=== PATIENT | female | born 1955 | race Caucasian/White ===

== ENCOUNTER → 2020-01-09 | Outpatient (CLI) | payer MEDICARE, OTHER ==
[2020-01-09 09:49] LABS: HCT 36.8 % (34.0-46.0); HGB 11.7 gm/dL (11.4-16.0); MCH 29.6 pg (25.0-35.0); MCHC 31.8 g/dL (31.0-37.0); MCV 93.3 fL (80.0-100.0); Mean Platelet Volume 7.5; Platelet Count 216 k/uL (150-450); RBC 3.95 m/uL (3.80-5.40); RDW 12.7 % (11.5-15.5); WBC 5.5 k/uL (3.8-10.6)
[2020-01-09 10:07] LABS: Appearance,Urine Cloudy (Clear); Bacteria,Urine Many /hpf; Bilirubin,Urine Negative (Negative); Blood,Urine Negative (Negative); Color,Urine Yellow; Glucose,Urine (UA) Negative (Negative); Ketones,Urine Negative (Negative); Leukocyte Esterase,Urine Large (Negative); Mucus,Urine Few /hpf; Nitrite,Urine Negative (Negative); PH, Urine 5.5 (5.0-8.0); Protein,Urine Trace (Negative); RBC,Urine 1 /hpf (0-5); Squamous Epithelial Cell,Urine <1 /hpf (0-4); Urobilinogen,Urine <2.0 mg/dL (<2.0); WBC,Urine 15 /hpf (0-5)
[2020-01-09 16:55] LABS: African American GFR (CKD) 68.5 (60.0-200.0); Albumin 3.9 g/dL (3.80-4.90); Albumin/Globulin Ratio 1.95 (1.60-3.17); Anion Gap 5.4 mmol/L (4.00-12.00); Calcium 9.1 mg/dL (8.7-10.3); Carbon Dioxide 26.6 mmol/L (21.6-31.8); Non-African American GFR(CKD) 59.1 (60.0-200.0); Phosphorus 3.6 mg/dL (2.4-5.1); Potassium 4.6 mmol/L (3.5-5.5); Total Bilirubin 0.6 mg/dL (0.3-1.2); Total Protein 5.9 g/dL (6.2-8.2)
== END | disposition home or self-care (01) ==
LOC: LABWHC1 08:18
PROVIDERS: ATTEND Orthopaedic Surgery
DX: M25.562 Pain in left knee (principal); M17.12 Unilateral primary osteoarthritis, left knee; M21.162 Varus deformity, not elsewhere classified, left knee; M24.562 Contracture, left knee; M85.88 Other specified disorders of bone density and structure, other site; Z88.1 Allergy status to other antibiotic agents
CPT/HCPCS: 36415; 80053; 81001; 82306; 82310; 82652; 83970; 84100; 85027

== ENCOUNTER → 2020-09-06 | Outpatient (CLI) | payer MEDICARE ==
[2020-09-06 14:59] LABS: Total Eosinophil Count 188 #EOS/uL (150-300)
[2020-09-06 19:19] LABS: African American GFR (CKD) 89.7 (60.0-200.0); Albumin 4.4 g/dL (3.80-4.90); Albumin/Globulin Ratio 2.44 (1.60-3.17); Anion Gap 10.7 mmol/L (4.00-12.00); BUN/Creat Ratio 26.25 Ratio (12.00-20.00); Calcium 9.4 mg/dL (8.7-10.3); Carbon Dioxide 27.3 mmol/L (21.6-31.8); Globulin 1.8 g/dL (1.6-3.3); Non-African American GFR(CKD) 77.4 (60.0-200.0); Potassium 4.8 mmol/L (3.5-5.5); Total Bilirubin 0.5 mg/dL (0.2-1.2); Total Protein 6.2 g/dL (6.2-8.2)
[2020-09-06 22:37] LABS: Dermato. farinae IgE <0.10 kU/L; Dog Dander IgE 1.95 kU/L
[2020-09-06 22:38] LABS: Alternaria alternata IgE 1.68 kU/L; Aspergillus fumagatus IgE <0.10 kU/L; Cladosporian herbarum IgE <0.10 kU/L; Cockroach IgE <0.10 kU/L
[2020-09-06 22:39] LABS: Birch IgE 3.07 kU/L; Maple (Box Elder) IgE 0.64 kU/L; Oak IgE 1.08 kU/L
[2020-09-06 22:40] LABS: Elm IgE <0.10 kU/L; Ragweed,Common IgE 0.28 kU/L
[2020-09-06 22:41] LABS: Red Top (Bentgrass) IgE <0.10 kU/L
[2020-09-07 03:09] LABS: Basophils # (A) 0.05 X 10*3/uL (0.00-0.10); Basophils % (A) 0.5 %; HCT 40.9 % (37.2-46.3); HGB 12.6 g/dL (12.0-15.0); Lymphocytes # (A) 0.47 X 10*3/uL (0.90-5.00); Lymphocytes % (A) 4.8 %; MCHC 30.8 g/dL (32.0-37.0); MCV 97.4 fL (80.0-97.0); Mean Platelet Volume 10.4 fL (9.5-12.2); Neutrophils # (A) 8.83 X 10*3/uL (1.80-7.70); Neutrophils % (A) 90.4 %; Platelet Count 231 X 10*3/uL (140-440); RDW 13.8 % (11.5-14.5); WBC 9.78 X 10*3/uL (4.50-10.00)
== END | disposition home or self-care (01) ==
LOC: LABWHC1 13:03
PROVIDERS: ATTEND Internal Medicine Critical Care Medicine
DX: J45.50 Severe persistent asthma, uncomplicated (principal)
CPT/HCPCS: 36415; 80053; 82785; 85008; 85025; 86003

== ENCOUNTER → 2021-10-14 | Outpatient (CLI) | payer MEDICARE ==
--- NOTE | 2021-10-14 14:18 | CT ---
EXAMINATION TYPE: CT abdomen pelvis wo con DATE OF EXAM: 10/14/2021 COMPARISON: None HISTORY: Rt flank pain CT DLP: 416.8 mGycm Automated exposure control for dose reduction was used. TECHNIQUE: Helical acquisition of images was performed from the lung bases through the pelvis. FINDINGS: Visualized lung bases are clear. There are surgical absence of gallbladder. There are no renal, ureteral or urinary bladder calcificat ions. There is no hydronephrosis There is no organomegaly involving the solid visceral organs of the upper abdomen. The caliber of the abdominal aorta is normal and no evidence of aneurysm. The bowel loops are normal in caliber and there is no evidence of dilatation or obstruction. No infla mmatory changes are identified in the mesentery. There is no free intraperitoneal air or fluid. There is no pelvic mass, free fluid or adenopathy. There are surgical absence of the uterus. No focal osseous abnormalities are seen. There are degenerative changes within the lower lumbar spine . IMPRESSION: 1. No renal or ureteral calcifications or hydronephrosis. 2. No acute changes within the abdomen or pelvis
== END | disposition home or self-care (01) ==
LOC: RADCTMAIN 13:28
PROVIDERS: ATTEND Internal Medicine
DX: R10.9 Unspecified abdominal pain (principal)
CPT/HCPCS: 74176

== ENCOUNTER → 2021-10-17 | Outpatient (CLI) | payer MEDICARE ==
--- NOTE | 2021-10-18 10:03 | MM ---
Reason for exam: screening (asymptomatic). Baseline mammogram. History: Patient is postmenopausal. Family history of breast cancer in sister at age 67. Physical Findings: A clinical breast exam by your physician is recommended on an annual basis and results should be correlated with mammographic findings. MG 3D Screening Mammo W/Cad Bilateral CC and MLO view(s) were taken. The breast tissue is heterogeneously dense. This may lower the sensitivity of mammography. There are benign appearing round, vascular calcifications bilaterally. There is no discrete abnormality. ASSESSMENT: Benign, BI-RAD 2 RECOMMENDATION: Routine screening mammogram of both breasts in 1 year. Manage on a clinical basis with regard to right breast pain off and on.
== END | disposition home or self-care (01) ==
LOC: RADMAMWWP 13:04
PROVIDERS: ATTEND Internal Medicine
DX: Z12.31 Encounter for screening mammogram for malignant neoplasm of breast (principal); Z78.0 Asymptomatic menopausal state; Z80.3 Family history of malignant neoplasm of breast
CPT/HCPCS: 77063; 77067

== ENCOUNTER 2023-11-25 12:01 | Inpatient (IN) | payer MEDICARE ==
--- NOTE | 2023-11-25 12:29 | ED ---
General Adult HPI - General Chief complaint: Shortness of Breath Stated complaint: ASTHMA Time Seen by Provider: 11/25/23 12:15 Source: patient, RN notes reviewed, old records reviewed Mode of arrival: wheelchair Limitations: no limitations - History of Present Illness Initial comments: This is a 68-year-old female who presents to the emergency department complaining of difficulty breathing. Patient states she has a history of asthma and this time of the year when there is a lot of pollen her asthma starts to act up. Patient states she has been taking breathing treatments but it has not helped. Patient went to an urgent care in the urgent care center to see us. Patient denies any fevers or chills. Patient denies any chest pain or palpitations. Patient states she has a cough but it is typical of her asthma. Patient denies any abdominal pain patient has nausea vomiting diarrhea. Patient denies any swelling to the legs or any calf tenderness. - Related Data Home Medications Medication Instructions Recorded Confirmed Ascorbic Acid [Vitamin C] 1,000 mg PO BID 05/15/16 05/15/16 Beclomethasone Dipropionate [Qvar 1 puff INHALATION RT-BID 05/15/16 05/15/16 80 mcg] Budesonide/Formoterol Fumarate 2 puff INHALATION RT-BID 05/15/16 05/15/16 [Symbicort 160-4.5 Mcg Inhaler] Calcium Carbonate/Vitamin D3 1 tab PO BID 05/15/16 05/15/16 [Calcium 500-Vit D3 600 Tablet] Cetirizine HCl 10 mg PO DAILY 05/15/16 05/15/16 Citalopram Hydrobromide [CeleXA] 40 mg PO DAILY 05/15/16 05/15/16 Montelukast [Singulair] 10 mg PO DAILY 05/15/16 05/15/16 Omeprazole 20 mg PO DAILY 05/15/16 05/15/16 Theophylline 12 Hour [Saw-Dur] 200 mg PO Q12HR 05/15/16 05/15/16 Previous Rx's Medication Instructions Recorded Dolutegravir Sodium [Tivicay] 50 mg PO DAILY 28 Days tablet 05/15/16 Emtricitabine/Tenofovir (Tdf) 1 each PO DAILY #28 tab 05/15/16 [Truvada 200 mg-300 mg Tablet] Allergies Allergy/AdvReac Type Severity Reaction Status Date / Time cefdinir [From Omnicef] Allergy Unknown Verified 11/25/23 12:06 latex Allergy Unknown Verified 11/25/23 12:06 levofloxacin [From Levaquin] Allergy Rash/Hives Verified 11/25/23 12:06 Penicillins Allergy Unknown Verified 11/25/23 12:06 sulfamethoxazole Allergy Rash/Hives Verified 11/25/23 12:06 [From Bactrim] trimethoprim [From Bactrim] Allergy Rash/Hives Verified 11/25/23 12:06 Review of Systems ROS Statement: Those systems with pertinent positive or pertinent negative responses have been documented in the HPI. ROS Other: All systems not noted in ROS Statement are negative. Past Medical History Past Medical History: Asthma Additional Past Medical History / Comment(s): hypoglycemia History of Any Multi-Drug Resistant Organisms: None Reported Past Surgical History: Hysterectomy Past Psychological History: No Psychological Hx Reported Smoking Status: Never smoker Past Alcohol Use History: None Reported Past Drug Use History: None Reported General Exam - General Exam Comments Initial Comments: GENERAL: Patient is well-developed and well-nourished. Patient is nontoxic and well- hydrated and is in mild distress. ENT: Neck is soft and supple. No significant lymphadenopathy is noted. Oropharynx is clear. Moist mucous membranes. Neck has full range of motion without eliciting any pain. EYES: The sclera were anicteric and conjunctiva were pink and moist. Extraocular movements were intact and pupils were equal round and reactive to light. Eyelids were unremarkable. PULMONARY: Expiratory wheezing diffusely CARDIOVASCULAR: There is a regular rate and rhythm without any murmurs gallops or rubs. ABDOMEN: Soft and nontender with normal bowel sounds. SKIN: Skin is clear with no lesions or rashes and otherwise unremarkable. NEUROLOGIC: Patient is alert and oriented x3. Cranial nerves II through XII are grossly intact. Motor and sensory are also intact. Normal speech, volume and content. Symmetrical smile. MUSCULOSKELETAL: Normal extremities with adequate strength and full range of motion. No lower extremity swelling or edema. No calf tenderness. LYMPHATICS: No significant lymphadenopathy is noted PSYCHIATRIC: Normal psychiatric evaluation. Limitations: no limitations Course Vital Signs 11/25/23 11/25/23 11/25/23 12:03 12:37 12:48 Temperature 97.8 F Pulse Rate 91 80 Respiratory 20 26 H Rate Blood Pressure 154/102 O2 Sat by Pulse 94 L Oximetry 06/09/24 06/09/24 06/09/24 12:56 13:03 13:58 Temperature Pulse Rate 82 88 82 Respiratory Rate Blood Pressure O2 Sat by Pulse Oximetry 11/25/23 14:09 Temperature Pulse Rate 80 Respiratory Rate Blood Pressure O2 Sat by Pulse Oximetry Medical Decision Making - Medical Decision Making EKG is interpreted by myself read EKG shows sinus rhythm at 90 bpm parable 140 QRS of 71 QT interval 374 QTc is 421. Patient's EKG shows no ST segment ovation or depression Was pt. sent in by a medical professional or institution (, PA, [employer], urgent care, hospital, or halfway...) When possible be specific @ -No Did you speak to anyone other than the patient for history (EMS, parent, family, police, friend...)? What history was obtained from this source @ -No Did you review nursing and triage notes (agree or disagree)? Why? @ -I reviewed and agree with nursing and triage notes Were old charts reviewed (outside hosp., previous admission, EMS record, old EKG, old radiological studies, urgent care reports/EKG's, halfway records)? Report findings @ -I compared today's chest x-ray with prior chest x-rays from a previous admission I see no acute explanation for the patient's symptoms today. Differential Diagnosis (chest pain, altered mental status, abdominal pain women, abdominal pain men, vaginal bleeding, weakness, fever, dyspnea, syncope, headache, dizziness, GI bleed, back pain, seizure, CVA, palpatations, mental health, musculoskeletal)? @ -Differential Dyspnea: Coronary syndrome, arrhythmia, tamponade, asthma, COPD, pulmonary embolism, pneumonia, pneumothorax, pulmonary effusion, anaphylaxis, diabetic ketoacidosis, flailed chest, pulmonary contusion, diaphragmatic rupture, anemia, neuromuscular, this is not meant to be an all-inclusive list. EKG interpreted by me (3pts min.). @ -As above X-rays interpreted by me (1pt min.). @ -Chest x-ray shows no acute normality CT interpreted by me (1pt min.). @ -None done U/S interpreted by me (1pt. min.). @ -None done What testing was considered but not performed or refused? (CT, X-rays, U/S, labs)? Why? @ -None What meds were considered but not given or refused? Why? @ -None Did you discuss the management of the patient with other professionals (professionals i.e. , PA, [employer], lab, RT, psych nurse, social services director, fur clipper, teacher, radio electronics officer, rehabilitation case coordinator)? Give summary @ -Spoke with sound physicians they agreed admit the patient admit the patient I wrote admitting orders Was smoking cessation discussed for >3mins.? @ -No Was critical care preformed (if so, how long)? @ -No Were there social determinants of health that impacted care today? How? (Homelessness, low income, unemployed, alcoholism, drug addiction, transportation, low edu. Level, literacy, decrease access to med. care, care home, rehab)? @ -No Was there de-escalation of care discussed even if they declined (Discuss DNR or withdrawal of care, Hospice)? DNR status @ -No What co-morbidities impacted this encounter? (DM, HTN, Smoking, COPD, CAD, Cancer, CVA, ARF, Chemo, Hep., AIDS, mental health diagnosis, sleep apnea, morbid obesity)? @ -None Was patient admitted / discharged? Hospital course, mention meds given and route, prescriptions, significant lab abnormalities, going to OR and other pertinent info. @ -Hospital course Undiagnosed new problem with uncertain prognosis? @ -No Drug Therapy requiring intensive monitoring for toxicity (Heparin, Nitro, Insulin, Cardizem)? @ -No Were any procedures done? @ -No Diagnosis/symptom? @ -Acute exacerbation of asthma Acute, or Chronic, or Acute on Chronic? @ -Acute Uncomplicated (without systemic symptoms) or Complicated (systemic symptoms)? @ -Complicated Side effects of treatment? @ -No Exacerbation, Progression, or Severe Exacerbation? @ -Severe exacerbation Poses a threat to life or bodily function? How? (Chest pain, [place], [place], pneumonia, PE, COPD, DKA, ARF, appy, cholecystitis, CVA, Diverticulitis, Homicidal, Suicidal, threat to staff... and all critical care pts) @ -Yes this can lead to hypoxia and endorgan dysfunction - Lab Data Result diagrams: 11/25/23 12:32 11/25/23 12:32 Lab Results 11/25/23 11/25/23 Range/Units 12:32 12:32 WBC 6.9 (3.8-10.6) k/uL RBC 4.70 (3.80-5.40) m/uL Hgb 14.2 (11.4-16.0) gm/dL Hct 43.5 (34.0-46.0) % MCV 92.5 (80.0-100.0) fL MCH 30.3 (25.0-35.0) pg MCHC 32.7 (31.0-37.0) g/dL RDW 13.3 (11.5-15.5) % Plt Count 195 (150-450) k/uL MPV 8.2 Neutrophils % 75 % Lymphocytes % 9 % Monocytes % 5 % Eosinophils % 8 % Basophils % 1 % Neutrophils # 5.2 (1.3-7.7) k/uL Lymphocytes # 0.6 L (1.0-4.8) k/uL Monocytes # 0.4 (0-1.0) k/uL Eosinophils # 0.6 (0-0.7) k/uL Basophils # 0.1 (0-0.2) k/uL Sodium 136 L (137-145) mmol/L Potassium 4.6 (3.5-5.1) mmol/L Chloride 109 H (98-107) mmol/L Carbon Dioxide 22 (22-30) mmol/L Anion Gap 5 mmol/L BUN 20 H (7-17) mg/dL Creatinine 0.76 (0.52-1.04) mg/dL Est GFR (CKD-EPI)AfAm >90 (>60 ml/min/1.73 sqM) Est GFR (CKD-EPI)NonAf 81 (>60 ml/min/1.73 sqM) Glucose 77 (74-99) mg/dL Calcium 9.0 (8.4-10.2) mg/dL Total Bilirubin 1.2 (0.2-1.3) mg/dL AST 24 (14-36) U/L ALT 14 (4-34) U/L Alkaline Phosphatase 88 (38-126) U/L Total Protein 6.6 (6.3-8.2) g/dL Albumin 4.3 (3.5-5.0) g/dL Disposition Clinical Impression: Exacerbation of asthma Disposition: ADMITTED IP TO THIS HOSP Referrals: None,Stated [Primary Care Provider] - 1-2 days Time of Disposition: 14:18
[2023-11-25] MEDS: methylPREDNISolone SOD SUCCI 125 MG/2 ML VIAL IV STA (12:34)
[2023-11-25] MEDS: IPRATROPIUM-ALBUTEROL 3 ML NEB INHALATION STA ×2 (12:47→13:58)
[2023-11-25 12:57] LABS: Basophils # (A) 0.1 k/uL (0-0.2); Basophils % (A) 1 %; Eosinophils # (A) 0.6 k/uL (0-0.7); Eosinophils % (A) 8 %; HCT 43.5 % (34.0-46.0); HGB 14.2 gm/dL (11.4-16.0); Lymphocytes # (A) 0.6 k/uL (1.0-4.8); Lymphocytes % (A) 9 %; MCH 30.3 pg (25.0-35.0); MCHC 32.7 g/dL (31.0-37.0); MCV 92.5 fL (80.0-100.0); Mean Platelet Volume 8.2; Monocytes # (A) 0.4 k/uL (0-1.0); Monocytes % (A) 5 %; Neutrophils # (A) 5.2 k/uL (1.3-7.7); Neutrophils % (A) 75 %; Platelet Count 195 k/uL (150-450); RDW 13.3 % (11.5-15.5); WBC 6.9 k/uL (3.8-10.6)
--- NOTE | 2023-11-25 12:58 | XR ---
EXAMINATION TYPE: XR chest 2V DATE OF EXAM: 11/25/2023 12:42 PM CLINICAL INDICATION:Female, 68 years old with history of Difficulty breathing ; [facility] COMPARISON: Chest radiographs from 11/25/2023 08/25/2020 TECHNIQUE: XR chest 2V Frontal and lateral views of the chest. FINDINGS: Lungs/Pleura: There is flattening of the diaphragm with increased lucency of the lungs. No evidence o f pneumothorax, pleural effusion or focal consolidation. Pulmonary vascularity: Unremarkable. Heart/mediastinum: Cardiomediastinal silhouette is unremarkable. Musculoskeletal: No acute osseous pathology. Calcification near the insertion of supraspinatus tendon on the right suggesting calcific tendinosis versus remote injury. Other findings: None IMPRESSION: 1. No acute cardiopulmonary disease process. 2. COPD changes.
[2023-11-25 13:19] LABS: ALT 14 U/L (4-34); AST 24 U/L (14-36); African American GFR (CKD) >90 (>60 ml/min/1.73 sqM); Albumin 4.3 g/dL (3.5-5.0); Alkaline Phosphatase 88 U/L (38-126); Anion Gap 5 mmol/L; Blood Urea Nitrogen 20 mg/dL (7-17); Carbon Dioxide 22 mmol/L (22-30); Chloride 109 mmol/L (98-107); Glucose 77 mg/dL (74-99); Non-African American GFR(CKD) 81 (>60 ml/min/1.73 sqM); Potassium 4.6 mmol/L (3.5-5.1); Sodium 136 mmol/L (137-145); Total Bilirubin 1.2 mg/dL (0.2-1.3); Total Protein 6.6 g/dL (6.3-8.2)
[2023-11-25] MEDS ORDERED: NALOXONE 0.4 MG/ML 1 ML VIAL IVP PRN (14:18)
[2023-11-25] MEDS ORDERED: BENZONATATE 100 MG CAP PO PRN (14:42)
--- NOTE | 2023-11-25 14:46 | P.HPIM ---
History of Present Illness H&P Date: 11/25/23 History of Presenting Illness: Patient is a very pleasant 68-year-old female with a past medical history of moderate persistent asthma, GERD, and anxiety. She presented to the emergency department with a chief complaint of shortness of breath. She reports often having a hard time controlling her asthma at this time of year resulting in recurrent exacerbations. Patient reports increasingly worsening shortness of breath, cough, and congestion. Patient states she recently had a significant exacerbation and around the first of this month and was seen and evaluated at urgent care in [place] and has not since seemed to recover fully. Patient reports she is in town for her granddaughters graduation and shortness of breath has been significantly worsening despite using her rescue inhaler with no improvement of symptoms. Patient reports that she is extremely winded with conversation and cannot even get up to walk to the bathroom without having to sit down to catch her breath, so she knew she had to be evaluated and went to [facility] but was sent to the emergency department for further evaluation. Upon arrival to our facility, patient underwent evaluation in the emergency department. Vital signs upon arrival show blood pressure 154/102, heart rate 91, respiratory rate 26, temp 97.8 F, and SpO2 of 94% on room air. EKG was completed showing normal sinus rhythm at 90 bpm with T wave inversion in aVL and no further T wave or ST abnormalities showing no signs of acute ischemia upon personal review and interpretation. Chest x-ray completed showing mild hyperinflation and flattening of the diaphragm, otherwise negative for acute cardiopulmonary process. Labs completed and reviewed. CBC unremarkable. BMP showing mild hyperchloremia with chloride of 109 and elevated BUN of 20 otherwise normal findings. Blood glucose 77. Liver profile unremarkable. Patient was provided with Solu-Medrol 125 mg IVP followed by nebulizer treatments in the emergency department with no improvement. She is being admitted under our services to observation unit with consultation to pulmonology. Review of systems: Pertinent positives and negatives as discussed in HPI, a complete review of systems was performed and all other systems are negative. Physical exam: Vital signs reviewed and stable. General: Nontoxic, no distress and appears stated age. Derm: Skin warm and dry, normal coloration for ethnicity. Head: Atraumatic, normocephalic and symmetric. Eyes: EOMs intact, no lid lag, and anicteric sclera Mouth: no lip lesions, mucus membranes moist Cardiovascular: regular rate and rhythm with normal S1S2, no murmur, positive posterior tibial pulses bilaterally, and cap refill < 2 seconds. Lungs: Increased work of breathing with conversational dyspnea. No accessory muscle usage. Patient on 2 L O2. Lungs with diffuse rhonchi and moderate expiratory wheezes throughout all centeno. Abdominal: soft, nontender to palpation, no guarding, no appreciable organomegaly Ext: ROM intact. No gross muscle atrophy, no edema, no contractures Neuro: Speech clear, face symmetrical and CN II-XII grossly intact with no noted focal neuro deficits Psych: Alert and oriented to person, place, time, and situation. Appropriate and pleasant affect. Assessment and Plan of Care: Acute Asthma exacerbation Acute on chronic respiratory failure -Consult to Pulmonology -Oxygenation to be administered and titrated as needed to maintain SPO2 equal to or greater than 92% -Telemetry monitoring. -Monitor pulse-oximetry -Duonebs scheduled 4 times daily and as needed for SOB and/or wheezing -Incentive Spirometry -Steroids: Solu-Medrol 60 mg IVP every 6 hours -Symbicort 160-4.5 mcg inhaler 2 puffs twice daily and Singulair 10 mg daily -Tessalon Perles 200 mg 3 times daily as needed for cough. -Order placed for Cepheid 4 Plex viral panel. Anxiety and depression Continue daily medication regiment with Celexa 40 mg daily. GERD GI prophylaxis with Protonix 40 mg daily. Data and imaging reviewed: As stated above in HPI The patient is admitted with an anticipated less than 2 midnight stay for evaluation of acute asthma exacerbation CODE STATUS: Full code DVT prophylaxis: Lovenox Anticipated discharge date: 24 to [address]: Home Patient was seen independently by Nurse Practitioner. This document was prepared using [employer] dictation software. Please allow for errors in assistant plant controller while rare they do occur. Andrea Cesar NP rendered care for this patient independently, reviewed the findin gs and plan as documented in the note above. I did not physically speak with or examine the patient on this date. Past Medical History Past Medical History: Asthma Additional Past Medical History / Comment(s): hypoglycemia History of Any Multi-Drug Resistant Organisms: None Reported Past Surgical History: Hysterectomy Past Psychological History: No Psychological Hx Reported Smoking Status: Never smoker Past Alcohol Use History: None Reported Past Drug Use History: None Reported - Past Family History Father Family Medical History: Myocardial Infarction ([place]) Sister(s) Family Medical History: Cancer Medications and Allergies Home Medications Medication Instructions Recorded Confirmed Type Citalopram Hydrobromide [CeleXA] 40 mg PO DAILY 05/15/16 11/25/23 History Montelukast [Singulair] 10 mg PO DAILY 05/15/16 11/25/23 History Albuterol Nebulized [Ventolin 2.5 mg INHALATION RT-Q4H 11/25/23 11/25/23 History Nebulized] Albuterol Sulfate [Ventolin HFA] 2 puff INHALATION RT-Q6H PRN 11/25/23 11/25/23 History Benzonatate [Tessalon Perle] 200 mg PO TID PRN 11/25/23 11/25/23 History Budesonide/Glycopyr/Formoterol 1 puff INHALATION RT-BID 11/25/23 11/25/23 History [Breztri Aerosphere Inhaler] Celecoxib [CeleBREX] 100 mg PO BID 11/25/23 11/25/23 History EPINEPHrine (Auto Inject) [Epipen] 0.3 mg IM ONCE PRN 11/25/23 11/25/23 History Allergies Allergy/AdvReac Type Severity Reaction Status Date / Time cefdinir [From Omnicef] Allergy Unknown Verified 11/25/23 12:06 latex Allergy Unknown Verified 11/25/23 12:06 levofloxacin [From Levaquin] Allergy Rash/Hives Verified 11/25/23 12:06 Penicillins Allergy Unknown Verified 11/25/23 12:06 sulfamethoxazole Allergy Rash/Hives Verified 11/25/23 12:06 [From Bactrim] trimethoprim [From Bactrim] Allergy Rash/Hives Verified 11/25/23 12:06 Physical Exam Vitals: Vital Signs Temp Pulse Resp BP Pulse Ox 11/25/23 14:09 80 11/25/23 13:58 82 11/25/23 13:03 88 11/25/23 12:56 82 11/25/23 12:48 80 11/25/23 12:37 26 H 11/25/23 12:03 97.8 F 91 20 154/102 94 L Intake and Output 11/24/23 11/25/23 11/25/23 22:59 06:59 14:59 Other: Weight 72.575 kg Results CBC & Chem 7: 11/26/23 15:52 11/26/23 15:52 Labs: Abnormal Lab Results - Last 24 Hours (Table) 11/25/23 11/25/23 Range/Units 12:32 12:32 Lymphocytes # 0.6 L (1.0-4.8) k/uL Sodium 136 L (137-145) mmol/L Chloride 109 H (98-107) mmol/L BUN 20 H (7-17) mg/dL
[2023-11-25] MEDS ORDERED: IPRATROPIUM 0.5 MG/2.5 ML NEBU INHALATION SCH (16:00)
[2023-11-25] MEDS: IPRATROPIUM-ALBUTEROL 3 ML NEB INHALATION SCH (16:54)
[2023-11-25] MEDS: PANTOPRAZOLE 40 MG TABLET PO SCH (17:41)
[2023-11-25] MEDS: methylPREDNISolone SOD SUCCI 125 MG/2 ML VIAL IV SCH (17:41)
[2023-11-25] MEDS: SYMBICORT 160-4.5 MCG INHALER INHALATION SCH (21:11)
[2023-11-25] MEDS: MELOXICAM 7.5 MG TAB PO SCH (21:30)
--- NOTE | 2023-11-26 01:28 | P.CNPUL ---
History of Present Illness Consult date: 11/26/23 Requesting physician: Andrea Cesar Reason for consult: asthma Chief complaint: Shortness of breath History of present illness: Patient is a 68-year-old white female with past medical history significant for severe persistent bronchial asthma, seasonal allergies, GERD. She has seen Dr. Obando in the pulmonary office in the past. She currently uses a combination of Breztri inhaler, albuterol nebs [id number], and has a rescue albuterol inhaler. Also on Singulair. She lives near the [facility], and is in town for her granddaughter's graduation libertarian. At the beginning of the month, she felt that her asthma was in exacerbation. Approximately, 2 weeks ago she went to a urgent care center in the [facility], and was given a prednisone burst taper and Z-Yusef. She completed this regimen, and initially felt better, however, started to develop issues with her breathing following tapering off her steroids. She noticed some increased shortness of breath and wheezing while at the graduation libertarian, her and her went back to the hot, and she subsequently came to the emergency department here at [facility] yesterday afternoon. She denies any infectious symptoms such as fever, productive cough, chest pain. She does have a chronic dry cough, worse in the e markel mornings. Denies any nausea, vomiting, or diarrhea. Viral panel negative for influenza, RSV, COVID. Chest x-ray does not show any focal infiltrates or evidence of pneumonia. There is hyperinflation with flattening of the diaphragm. CBC unremarkable, no leukocytosis. CMP also unremarkable. She is currently resting comfortable on 2 L/min nasal cannula. SpO2 is 95%. Afebrile. Vital signs are stable. Review of Systems REVIEW OF SYSTEMS: CONSTITUTIONAL: Denies any recent significant weight loss or weight gain. EYES: Denies change in vision. EARS, NOSE, MOUTH, THROAT: Denies headaches, denies sore throat. CARDIOVASCULAR: Denies chest pain, palpitations or syncopal episodes. RESPIRATORY: See HPI. GASTROINTESTINAL: Denies change in appetite, abdominal pain, nausea and vomiting, or diarrhea GENITOURINARY: Denies hematuria, denies infections. MUSKULOSKELETAL: Denies pain, denies swelling. INTEGUMENTARY: Denies rash, denies eczema. NEUROLOGICAL: Denies recent memory loss, no recent seizure activity. PSYCHIATRIC: Denies anxiety, denies depression. HEMATOLOGIC/LYMPHATIC: Denies anemia, denies enlarged lymph node Past Medical History Past Medical History: Asthma Additional Past Medical History / Comment(s): hypoglycemia History of Any Multi-Drug Resistant Organisms: None Reported Past Surgical History: Hysterectomy Past Psychological History: Anxiety Smoking Status: Never smoker Past Alcohol Use History: None Reported Past Drug Use History: None Reported - Past Family History Father Family Medical History: Myocardial Infarction ([place]) Sister(s) Family Medical History: Cancer Medications and Allergies Home Medications Medication Instructions Recorded Confirmed Type Citalopram Hydrobromide [CeleXA] 40 mg PO DAILY 05/15/16 11/25/23 History Montelukast [Singulair] 10 mg PO DAILY 05/15/16 11/25/23 History Albuterol Nebulized [Ventolin 2.5 mg INHALATION RT-Q4H 11/25/23 11/25/23 History Nebulized] Albuterol Sulfate [Ventolin HFA] 2 puff INHALATION RT-Q6H PRN 11/25/23 11/25/23 History Benzonatate [Tessalon Perle] 200 mg PO TID PRN 11/25/23 11/25/23 History Budesonide/Glycopyr/Formoterol 1 puff INHALATION RT-BID 11/25/23 11/25/23 History [Breztri Aerosphere Inhaler] Celecoxib [CeleBREX] 100 mg PO BID 11/25/23 11/25/23 History EPINEPHrine (Auto Inject) [Epipen] 0.3 mg IM ONCE PRN 11/25/23 11/25/23 History Allergies Allergy/AdvReac Type Severity Reaction Status Date / Time cefdinir [From Omnicef] Allergy Unknown Verified 11/25/23 12:06 latex Allergy Unknown Verified 11/25/23 12:06 levofloxacin [From Levaquin] Allergy Rash/Hives Verified 11/25/23 12:06 Penicillins Allergy Unknown Verified 11/25/23 12:06 sulfamethoxazole Allergy Rash/Hives Verified 11/25/23 12:06 [From Bactrim] trimethoprim [From Bactrim] Allergy Rash/Hives Verified 11/25/23 12:06 Physical Exam Vitals: Vital Signs Temp Pulse Pulse Resp BP BP Pulse Ox 11/25/23 21:26 88 11/25/23 18:14 97.2 F L 98 18 128/85 95 11/25/23 17:06 94 11/25/23 16:58 95 11/25/23 16:57 90 11/25/23 15:15 85 20 152/100 95 11/25/23 14:20 89 L 11/25/23 14:09 80 11/25/23 13:58 82 11/25/23 13:03 88 11/25/23 12:56 82 11/25/23 12:48 80 11/25/23 12:37 26 H 11/25/23 12:03 97.8 F 91 20 154/102 94 L Intake and Output 11/25/23 11/25/23 11/26/23 14:59 22:59 06:59 Other: # Voids 1 Weight 72.575 kg 72.575 kg GENERAL EXAM: Alert, 68-year-old white female, comfortable in no apparent distress. HEAD: Normocephalic and atraumatic EYES: Normal reaction of pupils, equal size. NOSE: Clear with pink turbinates. THROAT: No erythema or exudates. NECK: No masses, no JVD. CHEST: No chest wall deformity. LUNGS: Equal air entry with expiratory wheezes heard bilaterally and throughout. On 2 L/min nasal cannula. No conversational dyspnea or accessory muscle use.. CVS: S1 and S2 normal with no audible murmur, regular rhythm. No extra heart sounds ABDOMEN: No hepatosplenomegaly, active bowel sounds, no guarding or rigidity. SPINE: No scoliosis or deformity SKIN: No rashes CENTRAL NERVOUS SYSTEM: No focal deficits, tone is normal in all 4 extremities. EXTREMITIES: There is no peripheral edema, clubbing, or cyanosis. Peripheral pulses are intact. Results - Laboratory Findings CBC and BMP: 11/26/23 15:52 11/25/23 12:32 Abnormal lab findings: Abnormal Labs 11/25/23 11/25/23 12:32 12:32 Lymphocytes # 0.6 L Sodium 136 L Chloride 109 H BUN 20 H - Diagnostic Findings Chest x-ray: image reviewed Assessment and Plan Assessment: Exacerbation of severe persistent bronchial asthma, chest x-ray does not show any focal infiltrates or evidence of pneumonia. Negative for influenza, RSV, COVID. Recently failed outpatient treatment. Acute hypoxemic respiratory failure, secondary to above History of seasonal allergies Plan: Patient's medications, labs, imaging reviewed Continue supplemental oxygen as needed Continue current treatment of DuoNebs [id number], Symbicort inhaler, and IV Solu-Medrol 60 mg every 6 Protonix for GI prophylaxis Lovenox for DVT prophylaxis Will continue to follow I have personally seen and examined the patient, performed the documentation and the assessment and plan as written. Number of minutes spent on the visit:20 11/26/2023, the patient is being seen in a joint evaluation along with the nurse practitioner. The patient is known to have severe persistent bronchial ast hma/COPD. The patient is hospitalized for an acute asthma exacerbation. The patient also has developed an acute hypoxic respiratory failure currently on 2 L of oxygen with a pulse ox of 94%. Chest x-ray was reviewed and there is no indication for pneumonia. The patient is currently on Symbicort and DuoNeb updrafts. The patient is on IV Solu-Medrol 60 mg every 6 hours. The viral screen is negative. Clinically improving. Will continue to follow. She has been maintained on Breztri on outpatient basis in addition to Ventolin rescue inhaler on as-needed basis. Time with Patient: Greater than 30
[2023-11-26] MEDS: IPRATROPIUM-ALBUTEROL 3 ML NEB INHALATION PRN (06:24)
[2023-11-26] MEDS: MONTELUKAST 10 MG TAB PO SCH (09:25)
[2023-11-26] MEDS: CITALOPRAM HYDROBROMIDE 20 MG TAB PO SCH (09:25)
[2023-11-26] MEDS: ENOXAPARIN 40 MG/0.4 ML SYRINGE SQ SCH (09:25)
--- NOTE | 2023-11-26 12:23 | P.PN ---
Subjective Progress Note Date: 11/26/23 Hospital Course: Patient is a very pleasant 68-year-old female with a past medical history of moderate persistent asthma, GERD, and anxiety. She presented to the emergency department with a chief complaint of shortness of breath. She reports often having a hard time controlling her asthma at this time of year resulting in recurrent exacerbations. Patient reports increasingly worsening shortness of breath, cough, and congestion. Patient states she recently had a significant exacerbation and around the first of this month and was seen and evaluated at urgent care in [place] and has not since seemed to recover fully. Patient reports she is in town for her granddaughters graduation and shortness of breath has been significantly worsening despite using her rescue inhaler with no improvement of symptoms. Patient reports that she is extremely winded with conversation and cannot even get up to walk to the bathroom without having to sit down to catch her breath, so she knew she had to be evaluated and went to [facility] but was sent to the emergency department for further evaluation. Upon arrival to our facility, patient underwent evaluation in the emergency department. Vital signs upon arrival show blood pressure 154/102, heart rate 91, respiratory rate 26, temp 97.8 F, and SpO2 of 94% on room air. EKG was completed showing normal sinus rhythm at 90 bpm with T wave inversion in aVL and no further T wave or ST abnormalities showing no signs of acute ischemia upon personal review and interpretation. Chest x-ray completed showing mild hyperinflation and flattening of the diaphragm, otherwise negative for acute cardiopulmonary process. Labs completed and reviewed. CBC unremarkable. BMP showing mild hyperchloremia with chloride of 109 and elevated BUN of 20 otherwise normal findings. Blood glucose 77. Liver profile unremarkable. Patient was provided with Solu-Medrol 125 mg IVP followed by nebulizer treatments in the emergency department with no improvement. She is being admitted under our services to observation unit with consultation to pulmonology. Physical exam: Patient was seen and fully evaluated at bedside this morning, she remains on 2 L O2 currently SpO2 is 95%. Her respirations are even and unlabored. She continues to have significant diffuse expiratory wheezes throughout all centeno. Vital signs reviewed and stable. General: Nontoxic, no distress and appears stated age. Derm: Skin warm and dry, normal coloration for ethnicity. Head: Atraumatic, normocephalic and symmetric. Eyes: EOMs intact, no lid lag, and anicteric sclera Mouth: no lip lesions, mucus membranes moist Cardiovascular: regular rate and rhythm with normal S1S2, no murmur, positive posterior tibial pulses bilaterally, and cap refill < 2 seconds. Lungs: Increased work of breathing with conversational dyspnea. No accessory muscle usage. Patient on 2 L O2. Lungs with moderate expiratory wheezes throughout all centeno. Abdominal: soft, nontender to palpation, no guarding, no appreciable organomegaly Ext: ROM intact. No gross muscle atrophy, no edema, no contractures Neuro: Speech clear, face symmetrical and CN II-XII grossly intact with no noted focal neuro deficits Psych: Alert and oriented to person, place, time, and situation. Appropriate and pleasant affect. Assessment and Plan of Care: Acute Asthma exacerbation Acute on chronic respiratory failure -Consult to Pulmonology, reviewed documentation in chart -Oxygenation to be administered and titrated as needed to maintain SPO2 equal to or greater than 92% -Telemetry monitoring. -Monitor pulse-oximetry -Duonebs scheduled 4 times daily and as needed for SOB and/or wheezing -Incentive Spirometry -Steroids: Solu-Medrol 60 mg IVP every 6 hours -Symbicort 160-4.5 mcg inhaler 2 puffs twice daily and Singulair 10 mg daily -Tessalon Perles 200 mg 3 times daily as needed for cough. -Order placed for Cepheid 4 Plex viral panel. Anxiety and depression Continue daily medication regiment with Celexa 40 mg daily. GERD GI prophylaxis with Protonix 40 mg daily. Data and imaging reviewed: Labs reviewed. Influenza A, influenza B, RSV, and COVID PCR's were negative. Vital signs reviewed. Blood pressure 159/70, heart rate 94, respiratory rate 18, temp 98.3 F, and SpO2 of 95% on 2 L. CODE STATUS: Full code DVT prophylaxis: Lovenox Anticipated discharge date: Likely tomorrow morning, patient would benefit for another 24 hours of claxlv-ggb-sthny breathing treatments and IV steroids. Anticipated discharge place: Home Patient was seen independently by Nurse Practitioner. This document was prepared using Swipely dictation software. Please allow for errors in instructor weaving while rare they do occur. Andrea Cesar HEEL FORMER rendered care for this patient independently, reviewed the findings and plan as documented in the note above. I did not physically speak with or examine the patient on this date. Objective - Vital Signs Vital signs: Vital Signs Temp 97.6 F 11/26/23 02:00 Pulse 86 11/26/23 06:43 Resp 16 11/26/23 02:00 BP 128/74 11/26/23 02:00 Pulse Ox 98 11/26/23 02:00 FiO2 Intake & Output 11/25/23 11/26/23 11/26/23 18:59 06:59 18:59 Weight 72.575 kg Other: # Voids 1 2 - Labs CBC & Chem 7: 11/26/23 15:52 11/26/23 15:52 Labs: Abnormal Lab Results - Last 24 Hours (Table) 11/25/23 11/25/23 Range/Units 12:32 12:32 Lymphocytes # 0.6 L (1.0-4.8) k/uL Sodium 136 L (137-145) mmol/L Chloride 109 H (98-107) mmol/L BUN 20 H (7-17) mg/dL
[2023-11-26] MEDS: ADENOSINE 3 MG/ML 2 ML VIAL IVP ONE (14:01)
[2023-11-26] MEDS: METOPROLOL TARTRATE 5 MG/5 ML VIAL IVP STA (14:10)
[2023-11-26] MEDS ORDERED: HEPARIN SODIUM 1,000 UN/ML (10ML VL) IV PRN (14:24)
[2023-11-26] MEDS: HEPARIN SOD,PORK IN 0.45% NACL 25,000 UNIT in 0.45% NACL 1 250ML.BAG IV SCH (14:56)
[2023-11-26] MEDS: HEPARIN SODIUM 1,000 UN/ML (10ML VL) IV ONE (14:56)
[2023-11-26] MEDS: METOPROLOL TARTRATE 25 MG TAB PO STA (14:56)
--- NOTE | 2023-11-26 15:19 | P.PN ---
Progress Note - Text Progress Note Date: 11/26/23 A- team: Indication: Tachycardia with heart rate greater than 200s Arrived on Scene to find: Patient resting in bed connected to [employer] Heart Monitor and pads with HR 220's, blood pressure stable 138/68. Patient asymptomatic to tachycardia. Patient seen and examined at bedside. She reports that she was sitting in the chair and feeling mildly short of breath so she used her personal inhaler and then states staff ran to bedside because her heart rate was greater than 200. Patient asymptomatic denying any dizziness, lightheadedness, chest pain, palpitations, increased short of breath, or feeling any numbness/tingling/weakness in her extremities. EKG completed showing atrial fibrillation 201 bpm with inferior/lateral T wave abnormalities. Physical Exam: Vital signs reviewed and stable. General: Nontoxic,and appears stated age. Derm: Skin warm and dry, normal coloration for ethnicity. Head: Atraumatic, normocephalic and symmetric. Eyes: EOMs intact, no lid lag, and anicteric sclera Mouth: no lip lesions, mucus membranes moist Cardiovascular: Tachycardic rate, no murmur, positive posterior tibial pulses bilaterally, and cap refill < 2 seconds. Lungs: Respirations even, regular, and unlabored on 2 L O2. No accessory muscle usage. Patient on 2 L O2. Lungs with expiratory wheezes throughout all centeno. Abdominal: soft, nontender to palpation, no guarding, no appreciable organomeg kamran Ext: ROM intact. No gross muscle atrophy, no edema, no contractures Neuro: Speech clear, face symmetrical and CN II-XII grossly intact with no noted focal neuro deficits Psych: Alert and oriented to person, place, time, and situation. Appropriate and pleasant affect. Assessment and Plan of Care: Atrial fib/flutter with RVR -Patient initially attempted vasovagal maneuvers with unsuccessful control of heart rate, was given adenosine 6 mg IVP x 1 dose slowing rhythm down to 150s showing atrial fibrillation/flutter on monitor. Heart rate then resumed back up to 220s to 230s and patient given metoprolol 5 mg IVP x 1 dose resulting in conversion back to normal sinus rhythm. -Order placed for repeat EKG, TSH with free T4, magnesium, and stat BMP. -Heparin infusion initiated, low-dose with 4000 unit bolus followed by 12 units/kg/h. Monitor PTT every 6 hours and adjust infusion rate as needed for goal therapeutic PTT of 44 to 79 seconds. -Echocardiogram to be completed -CT PE also to be completed as patient just drove [place] [facility]. -Consult placed to cardiology for evaluation -Patient to remain on continuous telemetry monitoring. -Since patient converted back to normal sinus rhythm with IV metoprolol, order placed for oral metoprolol succinate 25 mg x 1 dose followed by scheduled metoprolol succinate 25 mg twice daily. Disposition: Patient transferred to cardiac stepdown unit and order placed for admission to inpatient. Repeat EKG completed status post converting back into sinus mechanism showing sinus tachycardia at 103 bpm with occasional PVCs and no noted T wave or ST abnormalities acute ischemia upon personal review and interpretation. A Total of 34 minutes of critical care time was spent on the complex care of this patient. Andrea Cesar NP rendered care for this patient independently, reviewed the findings and plan as documented in the note above. I did not physically speak with or examine the patient on this date.
[2023-11-26] MEDS: DILTIAZEM 125 MG in SODIUM CHLORIDE 0.9% 100 ML IV SCH (15:38)
[2023-11-26 16:41] LABS: Basophils % (A) 0 %; Eosinophils % (A) 0 %; HCT 39.7 % (34.0-46.0); HGB 12.6 gm/dL (11.4-16.0); Lymphocytes # (A) 0.3 k/uL (1.0-4.8); Lymphocytes % (A) 3 %; MCH 29.9 pg (25.0-35.0); MCHC 31.8 g/dL (31.0-37.0); MCV 94.2 fL (80.0-100.0); Mean Platelet Volume 8.7; Monocytes # (A) 0.3 k/uL (0-1.0); Monocytes % (A) 3 %; Neutrophils # (A) 10.9 k/uL (1.3-7.7); Neutrophils % (A) 94 %; Platelet Count 179 k/uL (150-450); RBC 4.21 m/uL (3.80-5.40); RDW 13.3 % (11.5-15.5); WBC 11.6 k/uL (3.8-10.6)
[2023-11-26 17:15] LABS: African American GFR (CKD) 67 (>60 ml/min/1.73 sqM); Anion Gap 7 mmol/L; Blood Urea Nitrogen 30 mg/dL (7-17); Calcium 8.7 mg/dL (8.4-10.2); Carbon Dioxide 20 mmol/L (22-30); Chloride 109 mmol/L (98-107); Glucose 148 mg/dL (74-99); Non-African American GFR(CKD) 59 (>60 ml/min/1.73 sqM); Potassium 4.6 mmol/L (3.5-5.1); Sodium 136 mmol/L (137-145)
--- NOTE | 2023-11-26 18:32 | CT ---
EXAMINATION TYPE: CT chest angio for PE DATE OF EXAM: 11/26/2023 COMPARISON: None HISTORY: SOB CT DLP: 234.9 mGycm Automated exposure control for dose reduction was used. CONTRAST: CT Chest for pulmonary embolism performed with with IV Contrast, patient injected with 100 ml mL of I sovue 370. FINDINGS: LUNGS: The lungs are grossly clear, there is no concerning parenchymal mass or nodule identified. T here is no pleural effusion or pneumothorax seen. The tracheobronchial tree is patent. MEDIASTINUM: There is satisfactory enhancement of the pulmonary artery and its branches, there is no CT evidence for pulmonary embolism. There are no greater than 1 cm hilar or mediastinal lymph nodes. No pericardial effusion is seen. OTHER: No additional significant abnormality is seen. IMPRESSION: 1. No evidence of pulmonary embolism. 2. No airspace consolidation, pneumothorax or pleural effusion. 3. Mild peribronchial cuffing in the lower lobes raising the question of mild bronchitis. Follow-up recommendations for incidental pulmonary nodules are per [employer] or [employer].
[2023-11-26 18:33] LABS: T4, Free (Free Thyroxine) 1.39 ng/dL (0.78-2.19)
--- NOTE | 2023-11-26 20:33 | CA ---
Transthoracic Echo Report Name: Ernesto Momin Age: 68 Gender: F : 1955 Exam Date: 11/26/2023 15:30 Exam Location: [place] [facility] Ht (in): 61 Wt (lb): 160 Ordering Physician: Andrea Cesar Attending/Referring Phys: Rate Clerk Passenger Patricia Vargas RDCS Procedure CPT: Indications: a flutter, eval heart structure and function Cardiac Hx: Technical Quality: Technically difficult study Contrast 1: Total Dose (mL): Contrast 2: Total Dose (mL): MEASUREMENTS (Male / Female) Normal Values 2D ECHO LV Diastolic Diameter PLAX 3.8 cm 4.2 - 5.9 / 3.9 - 5.3 cm LV Systolic Diameter PLAX 2.2 cm IVS Diastolic Thickness 1.3 cm 0.6 - 1.0 / 0.6 - 0.9 cm LVPW Diastolic Thickness 1.2 cm 0.6 - 1.0 / 0.6 - 0.9 cm LV Relative Wall Thickness 0.7 RV Internal Dim ED PLAX 2.9 cm LA Volume 40.3 cm??? 18 - 58 / 22 - 52 cm??? LA Volume Index 22.5 cm???/m??? 16 - 28 cm???/m??? M-MODE Aortic Root Diameter MM 2.8 cm LA Systolic Diameter MM 4.2 cm LA Ao Ratio MM 1.5 AV Cusp Separation MM 2.0 cm DOPPLER AV Peak Velocity 149.2 cm/s AV Peak Gradient 8.9 mmHg AV Mean Velocity 95.2 cm/s AV Mean Gradient 4.0 mmHg AV Velocity Time Integral 27.9 cm LVOT Peak Velocity 130.0 cm/s LVOT Peak Gradient 6.8 mmHg LVOT Velocity Time Integral 30.0 cm MV Area PHT 3.9 cm??? Mitral E Point Velocity 108.0 cm/s Mitral A Point Velocity 133.1 cm/s Mitral E to A Ratio 0.8 MV Deceleration Time 194.3 ms MV E' Velocity 7.6 cm/s Mitral E to MV E' Ratio 14.2 TR Peak Velocity 293.8 cm/s TR Peak Gradient 34.5 mmHg Right Ventricular Systolic Press 39.5 mmHg FINDINGS Left Ventricle Mildly increased left ventricular wall thickness. Left ventricular cavity size normal. Normal left ventricular systolic function with no obvious regional wall motion abnormalities. Left ventricular ejection fraction is estimated at 55-60 %. Grade 1 diastolic dysfunction. Right Ventricle Normal right ventricular size and function. Mild pulmonary hypertension. Right Atrium Mild right atrial dilatation. Left Atrium Normal left atrial size. Mitral Valve Structurally normal mitral valve. Mild mitral annular calcification. Mild mitral regurgitation. Aortic Valve No aortic valve stenosis or regurgitation. Tricuspid Valve Mild tricuspid regurgitation. Mild tricuspid regurgitation. Pulmonic Valve Structurally normal pulmonic valve. Pericardium No pericardial effusion. Aorta Normal size aortic root and proximal ascending aorta. CONCLUSIONS Left ventricular hypertrophy with preserved systolic function Previewed by: Dr. Rome Pitts MD (Electronically Signed) Final Date: 26 November 2023 20:32
[2023-11-26] MEDS: METOPROLOL TARTRATE 25 MG TAB PO SCH (20:39)
[2023-11-27] MEDS: cloNIDine HCL 0.1 MG TAB PO STA (00:38)
[2023-11-27] MEDS: ACETAMINOPHEN TAB 325 MG TAB PO PRN (00:38)
[2023-11-27 07:48] LABS: Basophils % (A) 0 %; Eosinophils % (A) 0 %; HCT 41.5 % (34.0-46.0); Lymphocytes # (A) 0.5 k/uL (1.0-4.8); Lymphocytes % (A) 3 %; MCH 30.2 pg (25.0-35.0); MCHC 31.4 g/dL (31.0-37.0); MCV 96.1 fL (80.0-100.0); Mean Platelet Volume 8.5; Monocytes # (A) 0.4 k/uL (0-1.0); Monocytes % (A) 3 %; Neutrophils # (A) 14.1 k/uL (1.3-7.7); Neutrophils % (A) 93 %; Platelet Count 228 k/uL (150-450); RBC 4.32 m/uL (3.80-5.40); RDW 13.4 % (11.5-15.5); WBC 15.1 k/uL (3.8-10.6)
[2023-11-27 09:17] LABS: African American GFR (CKD) 82 (>60 ml/min/1.73 sqM); Anion Gap 8 mmol/L; Blood Urea Nitrogen 32 mg/dL (7-17); Calcium 8.5 mg/dL (8.4-10.2); Carbon Dioxide 23 mmol/L (22-30); Chloride 107 mmol/L (98-107); Glucose 119 mg/dL (74-99); Magnesium 2.2 mg/dL (1.6-2.3); Non-African American GFR(CKD) 71 (>60 ml/min/1.73 sqM); Potassium 4.5 mmol/L (3.5-5.1); Sodium 138 mmol/L (137-145)
--- NOTE | 2023-11-27 11:01 | P.CRDCN ---
History of Present Illness History of present illness: HISTORY OF PRESENT ILLNESS: This is a 68-year-old female with a past medical history significant for asthma and depression. Patient does not follow with a conche operator. We have been asked to see the patient in consultation for tachycardia. Patient examined at the bedside. Patient presented to the ER with a chief complaint of shortness of breath. She has been treated for asthma exacerbation. Yesterday afternoon patient became tachycardic with heart rate around 200 while using the bathroom. She states she had just received a breathing treatment and her IV steroids. She denied having any palpitations. Although she does report that she felt hot and dizzy. She states over the past year she has been getting tired with exertion. Patient did receive adenosine x 1 dose. According to documentation her heart rate slowed down which showed atrial fibrillation/flutter. However there is no telemetry strips available of this for review. EKG obtained appears to be atrial tachycardia. Patient also received a dose of IV metoprolol and then was started on oral metoprolol. She is maintaining sinus mechanism this morning. DIAGNOSTICS: - EKG reveals sinus tachycardia with PVCs. No signs of acute ischemia. - Chest xray negative for acute process. COPD changes. - Chest CTA: Negative for pulmonary embolism - Laboratory data: WBC 15.1. Hemoglobin 13.0. Platelet count 228. Sodium 138. Potassium 4.5. BUN 32. Creatinine 0.84. TSH 0.351. Free T41.39. - Current home cardiac medications include none. - Echocardiogram obtained this admission reveals ejection fraction 55 to 60%, mild pulmonary hypertension REVIEW OF SYSTEMS: At the time of my exam: CONSTITUTIONAL: Denies fever or chills. HEENT: Denies blurred vision, vision changes, or eye pain. Denies hemoptysis CARDIOVASCULAR: Denies chest pain. Denies orthopnea. Denies PND. Denies palpitations RESPIRATORY: Denies shortness of breath. GASTROINTESTINAL: Denies abdominal pain. Denies nausea or vomiting. HEMATOLOGIC: Denies bleeding disorders. GENITOURINARY: Denies any blood in urine. SKIN: Denies pruitis. Denies rash. PHYSICAL EXAM: VITAL SIGNS: Reviewed. GENERAL: Well-developed in no acute distress. HEENT: Head is normocephalic. Pupils are equal, round. Sclerae anicteric. Mucous membranes of the mouth are moist. Neck supple. No JVD or thyromegaly LUNGS: Respirations even and unlabored. Lungs with decreased air exchange HEART: Regular rate and rhythm. S1 and S2 heard. ABDOMEN: Soft. Nondistended. Nontender. EXTREMITIES: Normal range of motion. No clubbing or cyanosis. Peripheral pulses intact. No lower extremity edema NEUROLOGIC: Awake and alert. Oriented x 3. ASSESSMENT: Atrial tachycardia Acute exacerbation of asthma Leukocytosis secondary to steroids GERD PLAN: 2D echo obtained and reviewed Continue current dose of metoprolol Continue telemetry monitoring Recommend 30-day event monitor at the time of discharge Patient states that she lives out of town. She was instructed to establish with a conche operator near her home. Patient verbalized understanding. Further recommendations pending patient course Nurse practitioner note has been reviewed by physician. Signing provider agrees with the documented findings, assessment, and plan of care documented by [employer] as a scribe. Past Medical History Past Medical History: Asthma Additional Past Medical History / Comment(s): hypoglycemia History of Any Multi-Drug Resistant Organisms: None Reported Past Surgical History: Hysterectomy Past Psychological History: No Psychological Hx Reported Smoking Status: Never smoker Past Alcohol Use History: None Reported Past Drug Use History: None Reported - Past Family History Father Family Medical History: Myocardial Infarction ([place]) Sister(s) Family Medical History: Cancer Medications and Allergies Home Medications Medication Instructions Recorded Confirmed Type Citalopram Hydrobromide [CeleXA] 40 mg PO DAILY 05/15/16 11/25/23 History Montelukast [Singulair] 10 mg PO DAILY 05/15/16 11/25/23 History Albuterol Nebulized [Ventolin 2.5 mg INHALATION RT-Q4H 11/25/23 11/25/23 History Nebulized] Albuterol Sulfate [Ventolin HFA] 2 puff INHALATION RT-Q6H PRN 11/25/23 11/25/23 History Benzonatate [Tessalon Perle] 200 mg PO TID PRN 11/25/23 11/25/23 History Budesonide/Glycopyr/Formoterol 1 puff INHALATION RT-BID 11/25/23 11/25/23 History [Breztri Aerosphere Inhaler] Celecoxib [CeleBREX] 100 mg PO BID 11/25/23 11/25/23 History EPINEPHrine (Auto Inject) [Epipen] 0.3 mg IM ONCE PRN 11/25/23 11/25/23 History Allergies Allergy/AdvReac Type Severity Reaction Status Date / Time cefdinir [From Omnicef] Allergy Unknown Verified 11/25/23 12:06 latex Allergy Unknown Verified 11/25/23 12:06 levofloxacin [From Levaquin] Allergy Rash/Hives Verified 11/25/23 12:06 Penicillins Allergy Unknown Verified 11/25/23 12:06 sulfamethoxazole Allergy Rash/Hives Verified 11/25/23 12:06 [From Bactrim] trimethoprim [From Bactrim] Allergy Rash/Hives Verified 11/25/23 12:06 Physical Exam Vitals: Vital Signs Temp Pulse Pulse Resp BP BP Pulse Ox 11/27/23 08:35 76 11/27/23 08:21 68 11/27/23 08:09 97.9 F 67 20 145/88 96 11/27/23 04:00 97.6 F 66 18 116/71 97 11/27/23 02:00 71 24 11/27/23 00:00 97.6 F 71 24 170/109 167/108 96 11/26/23 21:21 87 11/26/23 21:11 86 11/26/23 20:00 98.1 F 72 20 151/96 96 11/26/23 17:53 98.2 F 82 20 132/79 94 L 11/26/23 14:31 94 18 117/79 94 L 11/26/23 13:38 98.2 F 96 18 132/79 97 11/26/23 13:22 106 H 11/26/23 13:13 100 Intake and Output 11/26/23 11/27/23 11/27/23 22:59 06:59 14:59 Intake Total 118 180 Balance 118 180 Intake: Oral 118 180 Other: Voiding Method Bedside Commode Bedside Commode Bedside Commode # Voids 2 1 1 Results 11/27/23 06:46 11/27/23 06:46 Coagulation 11/26/23 11/27/23 Range/Units 20:30 06:46 APTT 63.0 H 75.6 H (22.0-30.0) sec CBC 11/26/23 11/27/23 Range/Units 15:52 06:46 WBC 11.6 H 15.1 H (3.8-10.6) k/uL RBC 4.21 4.32 (3.80-5.40) m/uL Hgb 12.6 13.0 (11.4-16.0) gm/dL Hct 39.7 41.5 (34.0-46.0) % Plt Count 179 228 (150-450) k/uL Comprehensive Metabolic Panel 11/26/23 11/27/23 Range/Units 15:52 06:46 Sodium 136 L 138 (137-145) mmol/L Potassium 4.6 4.5 (3.5-5.1) mmol/L Chloride 109 H 107 (98-107) mmol/L Carbon Dioxide 20 L 23 (22-30) mmol/L BUN 30 H 32 H (7-17) mg/dL Creatinine 0.99 0.84 (0.52-1.04) mg/dL Glucose 148 H 119 H (74-99) mg/dL Calcium 8.7 8.5 (8.4-10.2) mg/dL Current Medications Generic Name Dose Route Start Last Admin Trade Name Freq PRN Reason Stop Dose Admin Acetaminophen 650 mg 11/27/23 00:32 11/27/23 00:38 Acetaminophen Tab 325 Mg Tab PO 650 mg Q4HR PRN Administration Fever and/ or Pain Albuterol/Ipratropium 3 ml 11/25/23 16:00 11/27/23 08:21 Ipratropium-Albuterol 3 Ml Neb INHALATION 3 ml RT-QID MARILEE Administration Albuterol/Ipratropium 3 ml 11/25/23 14:18 11/26/23 06:24 Ipratropium-Albuterol 3 Ml Neb INHALATION 3 ml RT-Q2H PRN Administration Shortness Of Breath Or Wheezing Benzonatate 200 mg 11/25/23 14:42 Benzonatate 100 Mg Cap PO TID PRN Cough Budesonide/Formoterol Fumarate 2 puff 11/25/23 20:00 11/27/23 08:21 Symbicort 160-4.5 Mcg Inhaler INHALATION 2 puff RT-BID MARILEE Administration Citalopram Hydrobromide 40 mg 11/26/23 09:00 11/27/23 08:17 Citalopram Hydrobromide 20 Mg Tab PO 40 mg DAILY MARILEE Administration Heparin Sodium (Porcine) 0 unit 11/26/23 14:24 Heparin Sodium 1,000 Un/Ml (10ml Vl) IV PER PROTOCOL PRN Low PTT Protocol Meloxicam 7.5 mg 11/25/23 21:00 11/27/23 08:17 Meloxicam 7.5 Mg Tab PO 7.5 mg DAILY MARILEE Administration Methylprednisolone Sodium Succinate 60 mg 11/25/23 18:00 11/27/23 06:42 Methylprednisolone Sod Succi 125 Mg/2 Ml Vial IV 60 mg Q6HR MARILEE Administration Metoprolol Tartrate 25 mg 11/26/23 21:00 11/27/23 08:19 Metoprolol Tartrate 25 Mg Tab PO 25 mg BID MARILEE Administration Montelukast Sodium 10 mg 11/26/23 09:00 11/27/23 08:17 Montelukast 10 Mg Tab PO 10 mg DAILY MARILEE Administration Naloxone HCl 0.2 mg 11/25/23 14:18 Naloxone 0.4 Mg/Ml 1 Ml Vial IVP Q2M PRN Opioid Reversal Pantoprazole Sodium 40 mg 11/25/23 17:30 11/27/23 06:40 Pantoprazole 40 Mg Tablet PO 40 mg AC-BID MARILEE Administration Intake and Output 11/26/23 11/27/23 11/27/23 22:59 06:59 14:59 Intake Total 118 180 Balance 118 180 Intake: Oral 118 180 Other: Voiding Method Bedside Commode Bedside Commode Bedside Commode # Voids 2 1 1 11/27/23 06:46 11/27/23 06:46
--- NOTE | 2023-11-27 11:34 | P.PN ---
Subjective Progress Note Date: 11/27/23 Hospital Course: Patient is a very pleasant 68-year-old female with a past medical history of moderate persistent asthma, GERD, and anxiety. She presented to the emergency department with a chief complaint of shortness of breath/asthma exacerbation. Upon arrival to our facility, patient underwent evaluation in the emergency department. Vital signs upon arrival show blood pressure 154/102, heart rate 91, respiratory rate 26, temp 97.8 F, and SpO2 of 94% on room air. EKG was completed showing normal sinus rhythm at 90 bpm with T wave inversion in aVL and no further T wave or ST abnormalities showing no signs of acute ischemia upon personal review and interpretation. Chest x-ray completed showing mild hyperinflation and flattening of the diaphragm, otherwise negative for acute cardiopulmonary process. Labs completed and reviewed. CBC unremarkable. BMP showing mild hyperchloremia with chloride of 109 and elevated BUN of 20 otherwise normal findings. Blood glucose 77. Liver profile unremarkable. Patient was provided with Solu-Medrol 125 mg IVP followed by nebulizer treatments in the emergency department with no improvement. She is being a dmitted under our services to observation unit with consultation to pulmonology. On the afternoon of 11/26/2023 patient went into atrial fibrillation/flutter with heart rate greater than 220s. She was transferred to cardiac stepdown unit. Echocardiogram completed showing a preserved EF of 55 to 60% with mild pulmonary hypertension otherwise no significant valvular or structural abnormalities reported. CTA chest negative for pulmonary emboli showing mild peribronchial cuffing in the lower lobes consistent with mild bronchitis. TSH was low at 0.351 with normal free T4 of 1.39. Physical exam: Patient was seen and fully evaluated at bedside this morning, she remains on 2 L O2 currently SpO2 is 96%. Her respirations are even and unlabored. She reports significant shortness of breath with minimal ambulation and continues to have moderate diffuse expiratory wheezes throughout all centeno. Vital signs reviewed and stable. General: Nontoxic, no distress and appears stated age. Derm: Skin warm and dry, normal coloration for ethnicity. Head: Atraumatic, normocephalic and symmetric. Eyes: EOMs intact, no lid lag, and anicteric sclera Mouth: no lip lesions, mucus membranes moist Cardiovascular: regular rate and rhythm with normal S1S2, no murmur, positive posterior tibial pulses bilaterally, and cap refill < 2 seconds. Lungs: Respirations even, regular, and unlabored with no accessory muscle usage. Conversational dyspnea seems to have improved. Patient on 2 L O2. Lungs with moderate expiratory wheezes throughout all centeno. Abdominal: soft, nontender to palpation, no guarding, no appreciable organomegaly Ext: ROM intact. No gross muscle atrophy, no edema, no contractures Neuro: Speech clear, face symmetrical and CN II-XII grossly intact with no noted focal neuro deficits Psych: Alert and oriented to person, place, time, and situation. Appropriate and pleasant affect. Assessment and Plan of Care: Atrial flutter/atrial tachycardia with RVR, currently maintaining sinus mechanism. -Continue metoprolol 25 mg twice daily heparin infusion at 12 units/kg/h pending further recommendations from cardiology. -Echocardiogram completed showing a preserved EF of 55 to 60% with mild pulmonary hypertension otherwise no significant valvular or structural abnormalities reported. -CTA chest negative for pulmonary emboli showing mild peribronchial cuffing in the lower lobes consistent with mild bronchitis. MCH was low at 0.351 with normal free T4 of 1.39. -Continue heparin infusion at 12 units/kg/h. Monitor PTT every 6 hours and adjust infusion rate as needed for goal therapeutic PTT of 44 to 79 seconds. PTT currently therapeutic at 75.6. -Consult placed to cardiology for evaluation -Patient to remain on continuous telemetry monitoring. Acute Asthma exacerbation with bronchitis Acute on chronic respiratory failure -Pulmonology following, discussed plan of care with Dr. Obando. -Oxygenation to be administered and titrated as needed to maintain SPO2 equal to or greater than 92% -Telemetry monitoring. -Monitor pulse-oximetry -Duonebs scheduled 4 times daily and as needed for SOB and/or wheezing -Incentive Spirometry -Steroids: Solu-Medrol 60 mg IVP every 6 hours -Symbicort 160-4.5 mcg inhaler 2 puffs twice daily and Singulair 10 mg daily -Tessalon Perles 200 mg 3 times daily as needed for cough. -Cepheid 4 Plex viral panel negative for influenza A, influenza B, RSV, and COVID. Anxiety and depression Continue daily medication regiment with Celexa 40 mg daily. GERD GI prophylaxis with Protonix 40 mg daily. Data and imaging reviewed: Echocardiogram completed showing a preserved EF of 55 to 60% with mild pulmonary hypertension otherwise no significant valvular or structural abnormalities reported. CTA chest negative for pulmonary emboli showing mild peribronchial cuffing in the lower lobes consistent with mild bronchitis. TSH was low at 0.351 with normal free T4 of 1.39. Vital signs reviewed. Blood pressure 145/88, heart rate 67, respiratory rate 20, temp 97.9 F, and SpO2 of 96% on 2 L CODE STATUS: Full code DVT prophylaxis: Lovenox Anticipated discharge date: Pending clinical course Anticipated discharge place: Home Patient was seen independently by Nurse Practitioner. This document was prepared using [employer] dictation software. Please allow for errors in gang investigator while rare they do occur. I reviewed the documentation as provided by the ARIANNE above, who is the original author of this note. I agree with the documented assessment and plan, with the following changes: none Objective - Vital Signs Vital signs: Vital Signs Temp 97.6 F 11/27/23 04:00 Pulse 66 11/27/23 04:00 Resp 18 11/27/23 04:00 BP 116/71 11/27/23 04:00 Pulse Ox 97 11/27/23 04:00 FiO2 Intake & Output 11/26/23 11/27/23 11/27/23 18:59 06:59 18:59 Intake Total 118 Balance 118 Intake: Oral 118 Other: Voiding Method Toilet Bedside Commode # Voids 400 1 - Labs CBC & Chem 7: 11/27/23 06:46 11/27/23 06:46 Labs: Abnormal Lab Results - Last 24 Hours (Table) 11/26/23 11/26/23 11/26/23 Range/Units 15:52 15:52 20:30 WBC 11.6 H (3.8-10.6) k/uL Neutrophils # 10.9 H (1.3-7.7) k/uL Lymphocytes # 0.3 L (1.0-4.8) k/uL APTT 63.0 H (22.0-30.0) sec Sodium 136 L (137-145) mmol/L Chloride 109 H (98-107) mmol/L Carbon Dioxide 20 L (22-30) mmol/L BUN 30 H (7-17) mg/dL Glucose 148 H (74-99) mg/dL TSH 0.351 L (0.465-4.680) mIU/L 11/27/23 11/27/23 Range/Units 06:46 06:46 WBC 15.1 H (3.8-10.6) k/uL Neutrophils # 14.1 H (1.3-7.7) k/uL Lymphocytes # 0.5 L (1.0-4.8) k/uL APTT 75.6 H (22.0-30.0) sec Sodium (137-145) mmol/L Chloride (98-107) mmol/L Carbon Dioxide (22-30) mmol/L BUN (7-17) mg/dL Glucose (74-99) mg/dL TSH (0.465-4.680) mIU/L
--- NOTE | 2023-11-27 12:41 | P.PN ---
Subjective Progress Note Date: 11/27/23 Patient is a 68-year-old white female with past medical history significant for severe persistent bronchial asthma, seasonal allergies, GERD. She has seen Dr. Obando in the pulmonary office in the past. She currently uses a combination of Breztri inhaler, albuterol nebs [id number], and has a rescue albuterol inhaler. Also on Singulair. She lives near the [facility], and is in town for her granddaughter's graduation republican. At the beginning of the month, she felt that her asthma was in exacerbation. Approximately, 2 weeks ago she went to a urgent care center in the [facility], and was given a prednisone burst taper and Z-Yusef. She completed this regimen, and initially felt better, however, started to develop issues with her breathing following tapering off her steroids. She noticed some increased shortness of breath and wheezing while at the graduation republican, her and her went back to the hotel, and she subsequently came to the emergency department here at [facility] yesterday afternoon. She denies any infectious symptoms such as fever, productive cough, chest pain. She does have a chronic dry cough, worse in the early mornings. Denies any nausea, vomiting, or diarrhea. Viral panel negative for influenza, RSV, COVID. Chest x-ray does not show any focal infiltrates or evidence of pneumonia. There is hyperinflation with flattening of the diaphragm. CBC unremarkable, no leukocytosis. CMP also unremarkable. She is currently resting comfortable on 2 L/min nasal cannula. SpO2 is 95%. Afebrile. Vital signs are stable. 11/27/2023, the patient is being seen for a follow-up. Less short of breath on today's evaluation. COPD/asthma has been gradually improving. Nevertheless, the patient went into atrial fibrillation with rapid ventricular response yesterday and she was quite tachycardic and the heart rate was above 200. This occurred while she was using the bathroom. She denies having any chest pain he denies having any palpitation. She felt dizzy. She was given IV metoprolol and subsequently she converted. She is currently back in normal sinus rhythm. Currently she is on metoprolol and 25 mg p.o. twice a day. The patient will be seen also by cardiology. No focal neurological deficit. Obese count 15 with a hemoglobin 15 and a platelet count of 228. She is currently on IV heparin. BUN 32 with a creatinine of 0.8 and sodium levels at 138. Echocardiogram was done on 11/26/2023 and it showed a preserved LV function with an ejection fraction of 55 to 60%. Rest of the valve structures were essentially within normal limits. Objective - Vital Signs Vital signs: Vital Signs Temp 97.9 F 11/27/23 08:09 Pulse 76 11/27/23 08:35 Resp 20 11/27/23 08:09 BP 145/88 11/27/23 08:09 Pulse Ox 96 11/27/23 08:09 FiO2 Intake & Output 11/26/23 11/27/23 11/27/23 18:59 06:59 18:59 Intake Total 118 180 Balance 118 180 Intake: Oral 118 180 Other: Voiding Method Toilet Bedside Commode Bedside Commode # Voids 400 1 1 - Exam GENERAL EXAM: Alert, 68-year-old white female, comfortable in no apparent distress. HEAD: Normocephalic and atraumatic EYES: Normal reaction of pupils, equal size. NOSE: Clear with pink turbinates. THROAT: No erythema or exudates. NECK: No masses, no JVD. CHEST: No chest wall deformity. LUNGS: Equal air entry with expiratory wheezes heard bilaterally and throughout. On 2 L/min nasal cannula. No conversational dyspnea or accessory muscle use.. CVS: S1 and S2 normal with no audible murmur, regular rhythm. No extra heart sounds ABDOMEN: No hepatosplenomegaly, active bowel sounds, no guarding or rigidity. SPINE: No scoliosis or deformity SKIN: No rashes CENTRAL NERVOUS SYSTEM: No focal deficits, tone is normal in all 4 extremities. EXTREMITIES: There is no peripheral edema, clubbing, or cyanosis. Peripheral pulses are intact. - Labs CBC & Chem 7: 11/27/23 06:46 11/27/23 06:46 Labs: Abnormal Lab Results - Last 24 Hours (Table) 11/26/23 11/26/23 11/26/23 Range/Units 15:52 15:52 20:30 WBC 11.6 H (3.8-10.6) k/uL Neutrophils # 10.9 H (1.3-7.7) k/uL Lymphocytes # 0.3 L (1.0-4.8) k/uL APTT 63.0 H (22.0-30.0) sec Sodium 136 L (137-145) mmol/L Chloride 109 H (98-107) mmol/L Carbon Dioxide 20 L (22-30) mmol/L BUN 30 H (7-17) mg/dL Glucose 148 H (74-99) mg/dL TSH 0.351 L (0.465-4.680) mIU/L 11/27/23 11/27/23 11/27/23 Range/Units 06:46 06:46 06:46 WBC 15.1 H (3.8-10.6) k/uL Neutrophils # 14.1 H (1.3-7.7) k/uL Lymphocytes # 0.5 L (1.0-4.8) k/uL APTT 75.6 H (22.0-30.0) sec Sodium (137-145) mmol/L Chloride (98-107) mmol/L Carbon Dioxide (22-30) mmol/L BUN 32 H (7-17) mg/dL Glucose 119 H (74-99) mg/dL TSH (0.465-4.680) mIU/L Assessment and Plan Assessment: Acute exacerbation of severe persistent bronchial asthma/COPD, chest x-ray does not show any focal infiltrates or evidence of pneumonia. Negative for influenza, RSV, COVID. Recently failed outpatient treatment. Accordingly, the patient was hospitalized for increased shortness of breath chest x-ray the wheezing and she is clinically improving Acute hypoxemic respiratory failure, secondary to above, currently on 2 L of oxygen nasal cannula New onset atrial fibrillation with rapid ventricular response, converted to normal sinus rhythm. Currently on IV heparin and metoprolol. The patient had an echocardiogram that showed a preserved LV function without any valvular abnormalities. History of seasonal allergies Plan: Titrate oxygen flow to maintain saturation above 90% Continue current treatment of DuoNebs [id number] Continue Symbicort inhaler Continue IV Solu-Medrol 60 mg every 6 Continue metoprolol Continue IV heparin Cardiology consultation regarding his new onset atrial fibrillation Overall respiratory status is improved compared to yesterday. Will continue the bronchodilators and steroids for another 24 hours. Will continue to follow. Protonix for GI prophylaxis Lovenox for DVT prophylaxis Will continue to follow
[2023-11-27] MEDS: LOSARTAN 25 MG TAB PO SCH (18:05)
[2023-11-28 09:48] VITALS: BP 138/87; RESP 16; TEMP 98.1
--- NOTE | 2023-11-28 11:22 | P.DS ---
Providers Date of admission: 11/25/23 14:19 Expected date of discharge: 11/28/23 Attending physician: Sebastian De La Torre MD Consults: 11/25/23 14:43 Consult Physician Routine Consulting Provider: Edward Mcginnis Consult Reason/Comments: moderate persistant asthma with acute exacerbation Do you want consulting provider notified?: Yes, Notify in am 11/26/23 14:32 Consult Physician Routine Consulting Provider: Pelon Murcia Consult Reason/Comments: atrial flutter/svt HR > 220 Do you want consulting provider notified?: Yes Primary care physician: Stated None Hospital Course: Discharge Diagnosis: Atrial flutter/atrial tachycardia with RVR, currently maintaining sinus mechanism. Patient was evaluated by cardiology stating unlikely atrial flutter and more likely atrial tachycardia and for patient to continue metoprolol 25 mg twice daily in addition to being started on losartan 25 mg daily. Echocardiogram completed showing a preserved EF of 55 to 60% with mild pulmonary hypertension otherwise no significant valvular or structural abnormalities reported. CTA chest negative for pulmonary emboli showing mild peribronchial cuffing in the lower lobes consistent with mild bronchitis. MCH was low at 0.351 with normal free T4 of 1.39. Patient discharged home with 30-day event monitor and to follow-up outpatient with soldering inspector in 1 to 2 weeks. Acute Asthma exacerbation with bronchitis. Patient received [id number] IV steroids and nebulizer treatments. She was provided with a flutter valve. Home oxygen evaluation was completed patient 94% on room air with rest and 93% on room air with ambulation. She was cleared by pulmonology for discharge. Patient being discharged home on prednisone taper and to continue Ventolin inhaler 2 puffs every 6 hours as needed for shortness of breath, and scheduled nebulizer treatments 4 times daily. In addition patient to continue Singulair 10 mg daily and Breztri inhaler twice daily. Patient to follow-up outpatient with machine molder in 1 week. Acute on chronic respiratory failure. Anxiety and depression. Continue daily medication regiment with Celexa 40 mg daily. GERD. GI prophylaxis with Protonix 40 mg daily. Hospital Course: Patient is a very pleasant 68-year-old female with a past medical history of moderate persistent asthma, GERD, and anxiety. She presented to the emergency department with a chief complaint of shortness of breath/asthma exacerbation. Upon arrival to our facility, patient underwent evaluation in the emergency department. Vital signs upon arrival show blood pressure 154/102, heart rate 91, respiratory rate 26, temp 97.8 F, and SpO2 of 94% on room air. EKG was completed showing normal sinus rhythm at 90 bpm with T wave inversion in aVL and no further T wave or ST abnormalities showing no signs of acute ischemia upon personal review and interpretation. Chest x-ray completed showing mild hyperinflation and flattening of the diaphragm, otherwise negative for acute cardiopulmonary process. Labs completed and reviewed. CBC unremarkable. BMP showing mild hyperchloremia with chloride of 109 and elevated BUN of 20 otherwise normal findings. Blood glucose 77. Liver profile unremarkable. Patient was provided with Solu-Medrol 125 mg IVP followed by nebulizer treatments in the emergency department with no improvement. She is being admitted under our services to observation unit with consultation to pulmonology. On the afternoon of 11/26/2023 patient went into atrial f ibrillation/flutter with heart rate greater than 220s. She was transferred to cardiac stepdown unit. Echocardiogram completed showing a preserved EF of 55 to 60% with mild pulmonary hypertension otherwise no significant valvular or structural abnormalities reported. CTA chest negative for pulmonary emboli showing mild peribronchial cuffing in the lower lobes consistent with mild bronchitis. TSH was low at 0.351 with normal free T4 of 1.39. Cepheid 4 Plex viral panel negative for influenza A, influenza B, RSV, and COVID. Patient was evaluated by cardiology stating unlikely atrial flutter and more likely atrial tachycardia and for patient to continue metoprolol 25 mg twice daily in addition to being started on losartan 25 mg daily. Echocardiogram completed showing a preserved EF of 55 to 60% with mild pulmonary hypertension otherwise no significant valvular or structural abnormalities reported. CTA chest negative for pulmonary emboli showing mild peribronchial cuffing in the lower lobes consistent with mild bronchitis. MCH was low at 0.351 with normal free T4 of 1.39. Patient discharged home with 30-day event monitor and to follow-up outpatient with soldering inspector in 1 to 2 weeks. Patient received [id number] IV steroids and nebulizer treatments. She was provided with a flutter valve. Home oxygen evaluation was completed patient 94% on room air with rest and 93% on room air with ambulation. She was cleared by pulmonology for discharge. Patient being discharged home on prednisone taper and to continue Ventolin inhaler 2 puffs every 6 hours as needed for shortness of breath, and scheduled nebulizer treatments 4 times daily. In addition patient to continue Singulair 10 mg daily and Breztri inhaler twice daily. Patient to follow-up outpatient with machine molder in 1 week. Physical exam: Vital signs reviewed and stable. General: Nontoxic, no distress and appears stated age. Derm: Skin warm and dry, normal coloration for ethnicity. Head: Atraumatic, normocephalic and symmetric. Eyes: EOMs intact, no lid lag, and anicteric sclera Mouth: no lip lesions, mucus membranes moist Cardiovascular: regular rate and rhythm with normal S1S2, no murmur, positive posterior tibial pulses bilaterally, and cap refill < 2 seconds. Lungs: Respirations even, regular, and unlabored with no accessory muscle usage. Conversational dyspnea seems to have improved. Patient on 2 L O2. Lungs with moderate expiratory wheezes throughout all centeno. Abdominal: soft, nontender to palpation, no guarding, no appreciable organomegaly Ext: ROM intact. No gross muscle atrophy, no edema, no contractures Neuro: Speech clear, face symmetrical and CN II-XII grossly intact with no noted focal neuro deficits Psych: Alert and oriented to person, place, time, and situation. Appropriate and pleasant affect. A total of 35 minutes of time were spent preparing this complex discharge summa ry. Pt was discharged on 11/28/2023 at 11:18 AM. Patient was seen independently by Nurse Practitioner. This document was prepared using [employer] dictation software. Please allow for errors in md urologist while rare they do occur. I reviewed the documentation as provided by the ARIANNE above, who is the original author of this note. I agree with the documented assessment and plan, with the following changes: none Patient Condition at Discharge: Stable Plan - Discharge Summary Discharge Rx Participant: Yes New Discharge Prescriptions: New predniSONE See Taper PO DIRECTED 12 Days #30 tab Losartan [Cozaar] 25 mg PO DAILY 30 Days #30 tab Metoprolol Tartrate [Lopressor] 25 mg PO BID 30 Days #60 tab guaiFENesin-DM 600/30MG [Mucinex Dm] 2 each PO Q12HR 30 Days #60 tab Continue Montelukast [Singulair] 10 mg PO DAILY Citalopram Hydrobromide [CeleXA] 40 mg PO DAILY Albuterol Sulfate [Ventolin HFA] 2 puff INHALATION RT-Q6H PRN PRN Reason: Shortness Of Breath Albuterol Nebulized [Ventolin Nebulized] 2.5 mg INHALATION RT-Q4H Celecoxib [CeleBREX] 100 mg PO BID Benzonatate [Tessalon Perle] 200 mg PO TID PRN PRN Reason: Cough EPINEPHrine (Auto Inject) [Epipen] 0.3 mg IM ONCE PRN PRN Reason: Anaphylaxis Budesonide/Glycopyr/Formoterol [Breztri Aerosphere Inhaler] 1 puff INHALATION RT-BID Discharge Medication List Citalopram Hydrobromide [CeleXA] 40 mg PO DAILY 05/15/16 [History] Montelukast [Singulair] 10 mg PO DAILY 05/15/16 [History] Albuterol Nebulized [Ventolin Nebulized] 2.5 mg INHALATION RT-Q4H 11/25/23 [History] Albuterol Sulfate [Ventolin HFA] 2 puff INHALATION RT-Q6H PRN 11/25/23 [History] Benzonatate [Tessalon Perle] 200 mg PO TID PRN 11/25/23 [History] Budesonide/Glycopyr/Formoterol [Breztri Aerosphere Inhaler] 1 puff INHALATION RT-BID 11/25/23 [History] Celecoxib [CeleBREX] 100 mg PO BID 11/25/23 [History] EPINEPHrine (Auto Inject) [Epipen] 0.3 mg IM ONCE PRN 11/25/23 [History] Losartan [Cozaar] 25 mg PO DAILY 30 Days #30 tab 11/28/23 [Rx] Metoprolol Tartrate [Lopressor] 25 mg PO BID 30 Days #60 tab 11/28/23 [Rx] guaiFENesin-DM 600/30MG [Mucinex Dm] 2 each PO Q12HR 30 Days #60 tab 11/28/23 [Rx] predniSONE See Taper PO DIRECTED 12 Days #30 tab 11/28/23 [Rx] Follow up Appointment(s)/Referral(s): Pelon Murcia MD [Medical Doctor] - 1 Week Jose Llamas MD [REFERRING] - 1 Week (If you are unable to get in with your new PCP for posthospitalization follow-up, please call this office and schedule soonest appointment for postoperative evaluation.) Jorge L Obando MD [STAFF PHYSICIAN] - 12/06/23 8:30 am Patient Instructions/Handouts: Moderate and Severe Persistent Asthma (DC), Reactive Airways Disease (DC) Activity/Diet/Wound Care/Special Instructions: PLEASE CALL: Dr Talon Keane from [facility] and make an appointment with him to establish care. Dr. Murcia will send your event monitor records to their office. Activity: As tolerated. Take breaks as needed. Diet: Heart healthy and carb consistent diet. Avoid salts, or foods with hidden salts such as canned or boxed foods and frozen dinners. Extra salt makes your heart work harder and traps the fluid in your body for longer. Special Instructions: Take all of your medications as directed and remember to keep all of your doctor's appointments and follow-up as needed. Thank you for allowing us to participate in your care, it was truly a pleasure having you for our patient!!! . Discharge Disposition: HOME SELF-CARE
[2023-11-28 12:08] VITALS: PULSE 84
[2023-11-28] MEDS: guaiFENesin-DM 600/30MG 1 EACH TAB.ER.12H PO SCH (12:09)
--- NOTE | 2023-11-28 13:12 | P.PN ---
Subjective HISTORY OF PRESENT ILLNESS: This is a 68-year-old female with a past medical history significant for asthma and depression. Patient does not follow with a emergency vehicle driver. We have been asked to see the patient in consultation for tachycardia. Patient examined at the bedside. Patient presented to the ER with a chief complaint of shortness of breath. She has been treated for asthma exacerbation. Yesterday afternoon patient became tachycardic with heart rate around 200 while using the bathroom. She states she had just received a breathing treatment and her IV steroids. She denied having any palpitations. Although she does report that she felt hot and dizzy. She states over the past year she has been getting tired with exertion. Patient did receive adenosine x 1 dose. According to documentation her heart rate slowed down which showed atrial fibrillation/flutter. However there is no telemetry strips available of this for review. EKG obtained appears to be atrial tachycardia. Patient also received a dose of IV metoprolol and then was started on oral metoprolol. She is maintaining sinus mechanism this morning. DIAGNOSTICS: - EKG reveals sinus tachycardia with PVCs. No signs of acute ischemia. - Chest xray negative for acute process. COPD changes. - Chest CTA: Negative for pulmonary embolism - Laboratory data: WBC 15.1. Hemoglobin 13.0. Platelet count 228. Sodium 138. Potassium 4.5. BUN 32. Creatinine 0.84. TSH 0.351. Free T41.39. - Current home cardiac medications include none. - Echocardiogram obtained this admission reveals ejection fraction 55 to 60%, mild pulmonary hypertension 11/28/2023 Patient examined this morning at bedside. Patient denies chest pain or pressure. She denies shortness of breath. Patient is maintaining sinus mechanism on telemetry. She is hoping to be discharged home today. PHYSICAL EXAM: VITAL SIGNS: Reviewed. GENERAL: Well-developed in no acute distress. HEENT: Head is normocephalic. Pupils are equal, round. Sclerae anicteric. Mucous membranes of the mouth are moist. Neck supple. No JVD or thyromegaly LUNGS: Respirations even and unlabored. Lungs with decreased air exchange HEART: Regular rate and rhythm. S1 and S2 heard. ABDOMEN: Soft. Nondistended. Nontender. EXTREMITIES: Normal range of motion. No clubbing or cyanosis. Peripheral pulses intact. No lower extremity edema NEUROLOGIC: Awake and alert. Oriented x 3. ASSESSMENT: Atrial tachycardia, no clear-cut evidence of atrial fibrillation/flutter upon review of telemetry or EKG Acute exacerbation of asthma Leukocytosis secondary to steroids GERD PLAN: Patient states that she [place] out of town. She was instructed to establish with a emergency vehicle driver near her home. Patient verbalized understanding. Patient has had 30-day event monitor placed. Dr. Murcia will forward event monitor results to patient's emergency vehicle driver that she establishes with. Patient may be discharged home today from a cardiac standpoint We will sign off. Please reconsult if needed. Nurse practitioner note has been reviewed by physician. Signing provider agrees with the documented findings, assessment, and plan of care documented by [employer] as a scribe. Objective - Vital Signs Vital signs: Vital Signs Temp 98.1 F 11/28/23 08:00 Pulse 84 11/28/23 12:06 Resp 16 11/28/23 08:00 BP 138/87 11/28/23 08:00 Pulse Ox 93 L 11/28/23 12:06 FiO2 Intake & Output 11/27/23 11/28/23 11/28/23 18:59 06:59 18:59 Intake Total 540 420 Output Total 1 Balance 539 420 Intake: Oral 540 420 Output: Urine 1 Other: Voiding Method Bedside Commode Toilet # Voids 1 1 2 - Labs CBC & Chem 7: 11/27/23 06:46 11/27/23 06:46
== END 2023-11-28 13:15 | disposition home or self-care (01) | DRG 190 ==
LOC: EC 12:01 → 4SSUR 14:18 → OBSVTOIN 14:19 → 4SSUR 16:25 → 3SCARD 11-26 14:18
PROVIDERS: ADMIT Student in an Organized Health Care Education/Training Program; ATTEND Student in an Organized Health Care Education/Training Program
DX: J44.1 Chronic obstructive pulmonary disease with (acute) exacerbation (principal); J96.21 Acute and chronic respiratory failure with hypoxia; J45.51 Severe persistent asthma with (acute) exacerbation; I47.19 Other supraventricular tachycardia; J44.0 Chronic obstructive pulmonary disease with (acute) lower respiratory infection; K21.9 Gastro-esophageal reflux disease without esophagitis; D72.829 Elevated white blood cell count, unspecified; T38.0X5A Adverse effect of glucocorticoids and synthetic analogues, initial encounter; J40 Bronchitis, not specified as acute or chronic; I49.3 Ventricular premature depolarization; I48.91 Unspecified atrial fibrillation; I27.20 Pulmonary hypertension, unspecified; F41.9 Anxiety disorder, unspecified; F32.A Depression, unspecified; E87.8 Other disorders of electrolyte and fluid balance, not elsewhere classified; Z79.899 Other long term (current) drug therapy; Z79.51 Long term (current) use of inhaled steroids; Z79.1 Long term (current) use of non-steroidal anti-inflammatories (NSAID); Z88.1 Allergy status to other antibiotic agents; Z91.040 Latex allergy status; Z88.0 Allergy status to penicillin; Z88.2 Allergy status to sulfonamides
CPT/HCPCS: 36415; 71046; 71275; 80048; 80053; 83735; 84439; 84443; 85025; 85730; 87636; 93005; 93270; 93306; 94640; 94667; 94760; 96374; 99285